=== PATIENT | male | born 1990 | race Caucasian/White ===

== ENCOUNTER 2023-11-21 05:31 | Emergency (ER) | payer OTHER ==
[2023-11-21 05:41] VITALS: BP 119/81; PULSE 64; RESP 17; TEMP 97.8; BMI 26.6
[2023-11-21] MEDS ORDERED: ONDANSETRON *ODT* 4 MG TABLET ONE (06:37)
[2023-11-21] MEDS: ONDANSETRON *ODT* 4 MG TABLET SL ONE (06:47)
== END 2023-11-21 08:57 | disposition home or self-care (01) ==
LOC: JER 05:31
DX: R11.0 Nausea (principal); X08.8XXA Exposure to other specified smoke, fire and flames, initial encounter
CPT/HCPCS: 82375; 93005; 93010; 99284-25; Q0162